=== PATIENT | male | born 1970 | race Caucasian/White ===

== ENCOUNTER → 2016-12-31 | Outpatient (CLI) | payer MEDICAID ==
--- NOTE | 2016-12-31 16:23 | CR ---
EXAMINATION: Two-view chest (PA and Lateral views). HISTORY: Tobacco use. FINDINGS: The trachea is midline. The cardiomediastinal silhouette is within normal limits. No pulmonary infil trates, effusions or pneumothorax. Minimal hyperinflation. Osseous structures appear unremarkable. IMPRESSION: No acute cardiopulmonary process.
[2016-12-31 16:27] LABS: CHLORIDE,CL 108 mmol/L (98-110); SODIUM,NA 142 mmol/L (136-146)
--- NOTE | 2017-01-03 09:21 | CR ---
EXAMINATION: Right elbow HISTORY: Lateral epicondylitis COMPARISON: None TECHNIQUE: 2 views FINDINGS/IMPRESSION: There is no acute osseous abnormality, dislocation, or fracture identified. Bon e mineralization and joint spaces appear grossly preserved.
== END ==
LOC: MERGE 15:35 → MW.CHRC 15:35
PROVIDERS: ATTEND Family Medicine
DX: Z00.00 Encounter for general adult medical examination without abnormal findings (principal); M77.11 Lateral epicondylitis, right elbow; Z72.0 Tobacco use
CPT/HCPCS: 36415; 71020; 71020-26; 73070-26-RT; 73070-RT; 80053; 80061; 84439; 84443; 85025

== ENCOUNTER 2023-09-13 11:05 | Emergency (ER) | payer MEDICAID ==
[2023-09-13] MEDS ORDERED: Acetaminophen 500 MG Tab PO STA (11:16)
[2023-09-13] MEDS ORDERED: Ibuprofen 800 MG Tab PO STA (11:16)
[2023-09-13] MEDS ORDERED: oxyCODONE 5 MG Tab PO STA (11:16)
== END 2023-09-13 13:27 | disposition home or self-care (01) ==
LOC: MW.ED 11:05
DX: S52.501A Unspecified fracture of the lower end of right radius, initial encounter for closed fracture (principal); W11.XXXA Fall on and from ladder, initial encounter
CPT/HCPCS: 29125; 73060; 73090; 73110; 99283; A9270

== ENCOUNTER 2024-05-02 07:46 | Day surgery (SDC) | payer OTHER, MEDICAID ==
[~2024-05-02 07:46] MED LIST: Albuterol 0.083% 2.5 MG/3 ML Neb Soln NEB PRN; Bupivacaine 0.5% 30 ML SDV ONE; Lidocaine 2% 5 ML SDV ONE; Metoclopramide 10 MG/2 ML SDV IVPUSH PRN; Midazolam 1 MG/ML 2 ML SDV ONE; Morphine 2 MG/ML SYRINGE IVPUSH PRN; Naloxone 0.4 MG/ML SDV IVPUSH PRN; Ondansetron 4 MG/2 ML SDV IVPUSH PRN; ROPIVACAINE HCL ONE; dexmedeTOMIDine HCl 200 MCG/2 ML SDV ONE; droPERidol 5 MG/2 ML SDV IVPUSH PRN; fentaNYL 100 MCG/2 ML SDV ONE
[2024-05-02] MEDS ORDERED: ceFAZolin 2 GM in Sodium Chloride 0.9% 50 ML IV ONE (08:00)
[2024-05-02] MEDS: Lactated Ringers 1,000 ML IV SCH (08:17)
[2024-05-02] MEDS ORDERED: Ondansetron 4 MG/2 ML SDV ONE ×2 (10:26→14:18)
[2024-05-02] MEDS ORDERED: Lidocaine 2% 5 ML SDV ONE (10:26)
[2024-05-02] MEDS ORDERED: Sugammadex Sodium 200 MG/2 ML VIAL IV ONE (10:26)
[2024-05-02] MEDS ORDERED: Ketorolac 30 MG/ML SDV ONE (10:26)
[2024-05-02] MEDS ORDERED: Rocuronium Bromide 50 MG/5 ML Syringe ONE (10:26)
[2024-05-02] MEDS ORDERED: Dexamethasone 4 MG/ML 5 ML MDV ONE (10:26)
[2024-05-02] MEDS ORDERED: Propofol 200 MG/20 ML SDV ONE ×2 (10:26→14:18)
[2024-05-02] MEDS ORDERED: Ketamine HCL/NACL, ISO-OSM 50 MG/5 ML Syringe ONE (10:27)
[2024-05-02] MEDS ORDERED: fentaNYL 250 MCG/5 ML SDV ONE (10:27)
[2024-05-02] MEDS ORDERED: propofoL 50 ML ONE ×2 (10:34→12:46)
[2024-05-02] MEDS ORDERED: ceFAZolin 2 GM Vial ONE (10:36)
[2024-05-02] MEDS ORDERED: ePHEDrine 50 MG/ML SDV ONE (11:12)
[2024-05-02] MEDS ORDERED: ceFAZolin 1 GM Vial ONE ×3 (12:51→14:30)
[2024-05-02] MEDS ORDERED: Water For Injection, Sterile 20 ML ONE (13:19)
[2024-05-02] MEDS ORDERED: fentaNYL 100 MCG/2 ML SDV ONE (13:43)
[2024-05-02] MEDS ORDERED: Esmolol 100 MG/10 ML SDV ONE (14:17)
[2024-05-02] MEDS: HYDROmorphone 1 MG/ML Syringe IVPUSH PRN (15:31)
[2024-05-02] MEDS: fentaNYL 50 MCG/ML SDV IVPUSH PRN (15:35)
[2024-05-02] MEDS ORDERED: Gabapentin 300 MG Cap ONE (15:53)
== END 2024-05-02 17:50 | disposition home or self-care (01) ==
LOC: MW.SDS 07:46 → EDSTATUS 08:00 → MW.MS 16:30 → MW.SDS 17:50
PROVIDERS: ATTEND Orthopaedic Surgery
DX: S82.142A Displaced bicondylar fracture of left tibia, initial encounter for closed fracture (principal); S83.252A Bucket-handle tear of lateral meniscus, current injury, left knee, initial encounter; F41.9 Anxiety disorder, unspecified; J44.9 Chronic obstructive pulmonary disease, unspecified; F32.A Depression, unspecified; G47.00 Insomnia, unspecified; F17.210 Nicotine dependence, cigarettes, uncomplicated; Z79.899 Other long term (current) drug therapy; V29.408A Other motorcycle driver injured in collision with unspecified motor vehicles in traffic accident, initial encounter
CPT/HCPCS: 27536; 64445; 64448; A9270; J0131; J0665; J0690; J1100; J1170; J1885; J2250; J2405; J2704; J2795; J3010; J3490; J7120

== ENCOUNTER 2024-05-04 01:04 | Emergency (ER) | payer MEDICAID ==
[2024-05-04 02:18] LABS: BASOPHILS ABSOLUTE AUTO 0.07 K/uL (0.00-0.20); BASOPHILS PERCENT AUTO 0.6 % (0.0-1.0); EOSINOPHILS ABSOLUTE AUTO 0.19 K/uL (0.00-0.45); EOSINOPHILS PERCENT AUTO 1.7 % (0.0-6.0); HEMATOCRIT 27.2 % (42.0-52.0); IMMATURE GRAN ABSOLUTE AUTO 0.06 K/uL (0.00-0.05); IMMATURE GRAN PERCENT AUTO 0.5 % (0.0-0.4); LYMPHOCYTES ABSOLUTE AUTO 2.33 K/uL (1.00-4.80); LYMPHOCYTES PERCENT AUTO 20.6 % (24.0-44.0); MEAN CORPUSCULAR HEMOGLOBIN 28.8 pg (28.0-32.0); MEAN CORPUSCULAR HGB CONC 33.1 g/dL (32.0-36.0); MEAN CORPUSCULAR VOLUME 87.2 fL (83.0-99.0); MEAN PLATELET VOLUME 8.5 fL (9.4-12.4); MONOCYTES ABSOLUTE AUTO 0.94 K/uL (0.00-0.80); MONOCYTES PERCENT AUTO 8.3 % (0.0-8.0); NEUTROPHILS ABSOLUTE AUTO 7.71 K/uL (1.80-7.70); NEUTROPHILS PERCENT AUTO 68.3 % (41.0-71.0); PLATELET COUNT,PLT 527 K/uL (150-400); RED BLOOD CELL COUNT 3.12 M/uL (4.52-5.90)
[2024-05-04] MEDS: HYDROmorphone 1 MG/ML Syringe IVPUSH ONE ×3 (02:18→07:05)
[2024-05-04] MEDS: Sodium Chloride 0.9% 10 ML Syringe FLUSH PRN (02:25)
[2024-05-04] MEDS: Sodium Chloride 0.9% 2.5 ML Syringe FLUSH PRN (02:25)
[2024-05-04 02:39] LABS: A/G RATIO 0.9 (0.9-1.6); BILIRUBIN TOTAL 0.4 mg/dL (0.2-1.0); CARBON DIOXIDE,CO2 26.5 mmol/L (21.0-32.0); CREATININE 0.9 mg/dL (0.8-1.3); EST CRCL DRUG DOSING (CG) 84.28 mL/min; POTASSIUM,K 3.4 mmol/L (3.5-5.1); PROTEIN TOTAL,TP 6.4 g/dL (6.4-8.2)
[2024-05-04] MEDS: Ondansetron 4 MG/2 ML SDV IVPUSH ONE (04:35)
[2024-05-04] MEDS ORDERED: Bupivacaine 0.5%/EPINEPHrine 1:200,000 30 ML SDV ONE (07:52)
[2024-05-04] MEDS ORDERED: Ketamine HCL/NACL, ISO-OSM 50 MG/5 ML Syringe ONE (07:54)
[2024-05-04] MEDS ORDERED: dexmedeTOMIDine HCl 200 MCG/2 ML SDV ONE (07:54)
[2024-05-04] MEDS ORDERED: Midazolam 1 MG/ML 2 ML SDV ONE (07:54)
[2024-05-04] MEDS ORDERED: Water For Injection, Sterile 20 ML ONE (07:55)
[2024-05-04] MEDS ORDERED: Lidocaine 2% 5 ML SDV ONE (07:59)
[2024-05-04] MEDS: Sodium Chloride 0.9% 1,000 ML IV ONE (08:11)
== END 2024-05-04 11:28 | disposition home or self-care (01) ==
LOC: MW.ED 01:04
DX: G89.18 Other acute postprocedural pain (principal); M79.662 Pain in left lower leg; Z90.49 Acquired absence of other specified parts of digestive tract; Z79.899 Other long term (current) drug therapy
CPT/HCPCS: 36415; 64445; 64447; 80053; 85025; 96361; 96374; 96375; 96376; 99284; J1170; J2250; J2405; J3490; J7030

== ENCOUNTER 2024-07-13 10:04 | Day surgery (SDC) | payer MEDICAID ==
[~2024-07-13 10:04] MED LIST changes: -Albuterol 0.083% 2.5 MG/3 ML Neb Soln NEB PRN; -Bupivacaine 0.5% 30 ML SDV ONE; -Lidocaine 2% 5 ML SDV ONE; -Metoclopramide 10 MG/2 ML SDV IVPUSH PRN; -Midazolam 1 MG/ML 2 ML SDV ONE; -Morphine 2 MG/ML SYRINGE IVPUSH PRN; -Naloxone 0.4 MG/ML SDV IVPUSH PRN; -Ondansetron 4 MG/2 ML SDV IVPUSH PRN; -ROPIVACAINE HCL ONE; +ceFAZolin 2 GM in Sodium Chloride 0.9% 50 ML IV ONE; -dexmedeTOMIDine HCl 200 MCG/2 ML SDV ONE; -droPERidol 5 MG/2 ML SDV IVPUSH PRN; -fentaNYL 100 MCG/2 ML SDV ONE
[2024-07-13] MEDS ORDERED: Lidocaine 2% 5 ML SDV INJECT ONE (10:05)
[2024-07-13] MEDS ORDERED: Midazolam 1 MG/ML 2 ML SDV ONE (10:29)
[2024-07-13] MEDS ORDERED: fentaNYL 100 MCG/2 ML SDV ONE ×2 (10:29→12:46)
[2024-07-13] MEDS ORDERED: Propofol 200 MG/20 ML SDV ONE (10:30)
[2024-07-13] MEDS ORDERED: Succinylcholine/Sod PF 100 MG/5 ML SYRINGE IV ONE (10:39)
[2024-07-13] MEDS ORDERED: Ondansetron 4 MG/2 ML SDV ONE (10:40)
[2024-07-13] MEDS ORDERED: Dexamethasone 4 MG/ML 5 ML MDV ONE (10:40)
[2024-07-13] MEDS: Lactated Ringers 1,000 ML IV SCH (10:44)
[2024-07-13] MEDS: HYDROmorphone 1 MG/ML Syringe IVPUSH ONE (13:30)
[2024-07-13] MEDS ORDERED: Naloxone 0.4 MG/ML SDV IVPUSH PRN ×2 (13:31→13:36)
[2024-07-13] MEDS ORDERED: Ondansetron 4 MG/2 ML SDV IVPUSH PRN (13:36)
[2024-07-13] MEDS ORDERED: fentaNYL 50 MCG/ML SDV IVPUSH PRN (13:36)
[2024-07-13] MEDS ORDERED: Morphine 2 MG/ML SYRINGE IVPUSH PRN (13:36)
[2024-07-13] MEDS ORDERED: Phenylephrine HCl In 0.9% NaCl 1 MG/10 ML Syringe IVPUSH PRN (13:36)
[2024-07-13] MEDS ORDERED: Metoclopramide 10 MG/2 ML SDV IVPUSH PRN (13:36)
[2024-07-13] MEDS ORDERED: Albuterol 0.083% 2.5 MG/3 ML Neb Soln NEB PRN (13:36)
[2024-07-13] MEDS ORDERED: HYDROmorphone 1 MG/ML Syringe IVPUSH PRN (13:36)
== END 2024-07-13 14:50 | disposition home or self-care (01) ==
LOC: MW.SDS 10:04
PROVIDERS: ATTEND Orthopaedic Surgery
DX: T81.89XA Other complications of procedures, not elsewhere classified, initial encounter (principal); J44.9 Chronic obstructive pulmonary disease, unspecified; F31.9 Bipolar disorder, unspecified; F17.290 Nicotine dependence, other tobacco product, uncomplicated
CPT/HCPCS: 11042; J0330; J1100; J1170; J2250; J2704; J3010; J7120; J0690; J2405; J3490

== ENCOUNTER 2024-09-03 10:27 | Day surgery (SDC) | payer MEDICAID ==
[~2024-09-03 10:27] MED LIST changes: +Albuterol 0.083% 2.5 MG/3 ML Neb Soln NEB PRN; +HYDROmorphone 1 MG/ML Syringe IVPUSH PRN; +Metoclopramide 10 MG/2 ML SDV IVPUSH PRN; +Morphine 2 MG/ML SYRINGE IVPUSH PRN; +Naloxone 0.4 MG/ML SDV IVPUSH PRN; +Ondansetron 4 MG/2 ML SDV IVPUSH PRN; +Phenylephrine HCl In 0.9% NaCl 1 MG/10 ML Syringe IVPUSH PRN; -ceFAZolin 2 GM in Sodium Chloride 0.9% 50 ML IV ONE; +fentaNYL 50 MCG/ML SDV IVPUSH PRN
[2024-09-03] MEDS: Lactated Ringers 1,000 ML IV SCH (11:17)
[2024-09-03] MEDS ORDERED: Lidocaine 2% 5 ML SDV ONE (11:43)
[2024-09-03] MEDS ORDERED: Midazolam 1 MG/ML 2 ML SDV ONE (11:43)
[2024-09-03] MEDS ORDERED: fentaNYL 100 MCG/2 ML SDV ONE (11:43)
[2024-09-03] MEDS ORDERED: Propofol 200 MG/20 ML SDV ONE (11:44)
[2024-09-03] MEDS ORDERED: ceFAZolin 1 GM Vial ONE (12:00)
[2024-09-03] MEDS ORDERED: Ondansetron 4 MG/2 ML SDV ONE (12:14)
[2024-09-03] MEDS ORDERED: Ketorolac 30 MG/ML SDV ONE (12:15)
== END 2024-09-03 13:45 | disposition home or self-care (01) ==
LOC: MW.SDS 10:27
PROVIDERS: ATTEND Orthopaedic Surgery
DX: S81.002A Unspecified open wound, left knee, initial encounter (principal); F41.9 Anxiety disorder, unspecified; F31.9 Bipolar disorder, unspecified; J44.9 Chronic obstructive pulmonary disease, unspecified; Z79.899 Other long term (current) drug therapy
CPT/HCPCS: 10180; J0690; J1885; J2250; J2405; J2704; J3010; J7120; J3490

== ENCOUNTER 2024-12-20 06:44 | Day surgery (SDC) | payer MEDICAID ==
[2024-12-20] MEDS: Lactated Ringers 1,000 ML IV SCH (07:15)
[2024-12-20] MEDS ORDERED: fentaNYL 100 MCG/2 ML SDV ONE (07:21)
[2024-12-20] MEDS ORDERED: Propofol 200 MG/20 ML SDV ONE ×2 (07:21→09:52)
[2024-12-20] MEDS ORDERED: Midazolam 1 MG/ML 2 ML SDV ONE ×2 (07:21→13:12)
[2024-12-20] MEDS ORDERED: Ketamine HCL/NACL, ISO-OSM 50 MG/5 ML Syringe ONE (07:21)
[2024-12-20] MEDS ORDERED: Lidocaine 1% 5 ML VIAL ONE ×2 (07:22→13:02)
[2024-12-20] MEDS ORDERED: Ondansetron 4 MG/2 ML SDV ONE (07:22)
[2024-12-20] MEDS ORDERED: Lidocaine 2% 5 ML SDV ONE (07:22)
[2024-12-20] MEDS ORDERED: Dexamethasone 4 MG/ML 5 ML MDV ONE (07:22)
[2024-12-20] MEDS ORDERED: Albuterol 0.083% 2.5 MG/3 ML Neb Soln NEB PRN (07:56)
[2024-12-20] MEDS ORDERED: Metoclopramide 10 MG/2 ML SDV IVPUSH PRN (07:56)
[2024-12-20] MEDS ORDERED: Morphine 2 MG/ML SYRINGE IVPUSH PRN (07:56)
[2024-12-20] MEDS ORDERED: fentaNYL 50 MCG/ML SDV IVPUSH PRN (07:56)
[2024-12-20] MEDS ORDERED: Phenylephrine HCl In 0.9% NaCl 1 MG/10 ML Syringe IVPUSH PRN (07:56)
[2024-12-20] MEDS ORDERED: Naloxone 0.4 MG/ML SDV IVPUSH PRN (07:56)
[2024-12-20] MEDS ORDERED: Ondansetron 4 MG/2 ML SDV IVPUSH PRN (07:56)
[2024-12-20] MEDS ORDERED: ceFAZolin 2 GM Vial ONE (07:57)
[2024-12-20] MEDS ORDERED: ceFAZolin 2 GM in Sodium Chloride 0.9% 50 ML IV ONE (08:00)
[2024-12-20] MEDS ORDERED: ePHEDrine 50 MG/ML SDV ONE (08:52)
[2024-12-20] MEDS ORDERED: HYDROmorphone 1 MG/ML Syringe ONE (09:10)
[2024-12-20] MEDS ORDERED: Sugammadex Sodium 200 MG/2 ML VIAL IV ONE (11:26)
[2024-12-20] MEDS: HYDROmorphone 1 MG/ML Syringe IVPUSH PRN (12:38)
[2024-12-20] MEDS ORDERED: Ropivacaine 0.5% 5 MG/ML 30 ML SDV ONE (13:05)
[2024-12-20] MEDS: oxyCODONE 5 MG Tab PO ONE (14:45)
== END 2024-12-20 15:39 | disposition home or self-care (01) ==
LOC: MW.SDS 06:44 → EEVIPCON 06:44 → MW.SDS 15:39
PROVIDERS: ATTEND Orthopaedic Surgery
DX: S82.142P Displaced bicondylar fracture of left tibia, subsequent encounter for closed fracture with malunion (principal); S82.402K Unspecified fracture of shaft of left fibula, subsequent encounter for closed fracture with nonunion; M21.062 Valgus deformity, not elsewhere classified, left knee; F41.9 Anxiety disorder, unspecified; J44.9 Chronic obstructive pulmonary disease, unspecified; F31.9 Bipolar disorder, unspecified; F17.210 Nicotine dependence, cigarettes, uncomplicated; Z79.899 Other long term (current) drug therapy; X58.XXXA Exposure to other specified factors, initial encounter
CPT/HCPCS: 20680; 27457; 64708; 87070; 87075; 87077; 87186; 87205; A9270; C1713; C1776; J0131; J0690; J1100; J1171; J2003; J2250; J2704; J2795; J3010; J7120; 01392; 64447; J2405; J3490

== ENCOUNTER 2025-03-08 08:48 | Emergency (ER) | payer MEDICAID ==
[2025-03-08] MEDS ORDERED: Sodium Chloride 0.9% 2.5 ML Syringe FLUSH PRN (09:28)
[2025-03-08] MEDS: Sodium Chloride 0.9% 10 ML Syringe FLUSH PRN (09:46)
[2025-03-08] MEDS: Morphine 2 MG/ML SYRINGE IVPUSH ONE (09:46)
[2025-03-08] MEDS: Ketorolac 30 MG/ML SDV IVPUSH ONE (09:46)
[2025-03-08 10:03] LABS: HEMATOCRIT 42.4 % (42.0-52.0); HEMOGLOBIN 13.3 g/dL (14.0-18.0); MEAN CORPUSCULAR HEMOGLOBIN 24.9 pg (28.0-32.0); MEAN CORPUSCULAR HGB CONC 31.4 g/dL (32.0-36.0); MEAN CORPUSCULAR VOLUME 79.3 fL (83.0-99.0); PLATELET COUNT,PLT 472 K/uL (150-400); RED BLOOD CELL COUNT 5.35 M/uL (4.52-5.90); WHITE BLOOD CELL COUNT,WBC 9.96 K/uL (3.9-11.3)
[2025-03-08 10:20] LABS: C-REACTIVE PROTEIN 20.93 mg/dL (<0.3); CALCIUM 9.5 mg/dL (8.5-10.1); CARBON DIOXIDE,CO2 25.3 mmol/L (21.0-32.0); CREATININE 0.9 mg/dL (0.8-1.3); EST CRCL DRUG DOSING (CG) 83.3 mL/min; POTASSIUM,K 4.4 mmol/L (3.5-5.1)
[2025-03-08 10:37] LABS: LYMPHOCYTES ABSOLUTE MAN 1.99 K/uL (1.00-4.80); LYMPHOCYTES PERCENT MAN 20 % (24-44); MONOCYTES ABSOLUTE MAN 1.49 K/uL (0.00-0.80); MONOCYTES PERCENT MAN 15 % (0-8); SEG NEUTROPHILS ABSOLUTE MAN 6.47 K/uL (1.80-7.70); SEG NEUTROPHILS PERCENT MAN 65 % (41-71)
[2025-03-08] MEDS: Acetaminophen/HYDROcodone 325-5 MG Tab PO ONE (11:22)
== END 2025-03-08 12:08 | disposition home or self-care (01) ==
LOC: MW.ED 08:48
DX: M25.562 Pain in left knee (principal); J44.9 Chronic obstructive pulmonary disease, unspecified; Z90.49 Acquired absence of other specified parts of digestive tract
CPT/HCPCS: 36415; 73562; 73590; 80048; 85025; 85652; 86140; 96374; 96375; 99283; A9270; J1885; J2270

== ENCOUNTER 2025-05-15 10:47 | Inpatient (IN) | payer MEDICAID ==
[~2025-05-15 10:47] MED LIST changes: -HYDROmorphone 1 MG/ML Syringe IVPUSH PRN; -Metoclopramide 10 MG/2 ML SDV IVPUSH PRN; -Morphine 2 MG/ML SYRINGE IVPUSH PRN; -Phenylephrine HCl In 0.9% NaCl 1 MG/10 ML Syringe IVPUSH PRN
[2025-05-15] MEDS: Lactated Ringers 1,000 ML IV SCH (11:50)
[2025-05-15] MEDS ORDERED: fentaNYL 250 MCG/5 ML SDV ONE ×2 (11:54→13:27)
[2025-05-15] MEDS ORDERED: Propofol 200 MG/20 ML SDV ONE (11:54)
[2025-05-15 12:07] LABS: BASOPHILS ABSOLUTE AUTO 0.08 K/uL (0.00-0.20); BASOPHILS PERCENT AUTO 1.0 % (0.0-1.0); EOSINOPHILS ABSOLUTE AUTO 0.31 K/uL (0.00-0.45); EOSINOPHILS PERCENT AUTO 3.7 % (0.0-6.0); IMMATURE GRAN ABSOLUTE AUTO 0.02 K/uL (0.00-0.05); IMMATURE GRAN PERCENT AUTO 0.2 % (0.0-0.4); LYMPHOCYTES ABSOLUTE AUTO 1.68 K/uL (1.00-4.80); LYMPHOCYTES PERCENT AUTO 20.0 % (24.0-44.0); MEAN PLATELET VOLUME 9.0 fL (9.4-12.4); MONOCYTES ABSOLUTE AUTO 0.88 K/uL (0.00-0.80); MONOCYTES PERCENT AUTO 10.5 % (0.0-8.0); NEUTROPHILS ABSOLUTE AUTO 5.41 K/uL (1.80-7.70); NEUTROPHILS PERCENT AUTO 64.6 % (41.0-71.0); NRBC ABSOLUTE 0.00 K/uL (0.00-0.02); NRBC PERCENT 0.0 /100WBC (0.0-0.2); PLATELET COUNT,PLT 283 K/uL (150-400); RED BLOOD CELL COUNT 4.49 M/uL (4.52-5.90); WHITE BLOOD CELL COUNT,WBC 8.38 K/uL (3.9-11.3)
[2025-05-15 12:31] LABS: A/G RATIO 1.1 (0.9-1.6); ALANINE AMINOTRANSFERASE,ALT 33.0 IU/L (14-63); ASPARTATE AMNIOTRANSFERASE,AST 24.0 IU/L (15-37); BILIRUBIN TOTAL 0.7 mg/dL (0.2-1.0); BLOOD UREA NITROGEN,BUN 19.0 mg/dL (7.0-18.0); CARBON DIOXIDE,CO2 25.7 mmol/L (21.0-32.0); CHLORIDE,CL 102.0 mmol/L (98-107); CREATININE 0.9 mg/dL (0.8-1.3); EST CRCL DRUG DOSING (CG) 83.3 mL/min; GLUCOSE RANDOM 92.0 mg/dL (74-106); POTASSIUM,K 3.7 mmol/L (3.5-5.1); PROTEIN TOTAL,TP 6.8 g/dL (6.4-8.2); SODIUM,NA 138.0 mmol/L (136-148)
[2025-05-15 12:38] LABS: ESTIMATED GFR 101.0 mL/min (>60)
[2025-05-15] MEDS ORDERED: Lidocaine 2% 11 ML Jelly Filled Syringe ONE (12:38)
[2025-05-15] MEDS ORDERED: Succinylcholine/Sod PF 100 MG/5 ML SYRINGE IV ONE (12:40)
[2025-05-15] MEDS ORDERED: Ketamine HCL/NACL, ISO-OSM 50 MG/5 ML Syringe ONE (13:29)
[2025-05-15] MEDS ORDERED: Dexamethasone 4 MG/ML 5 ML MDV ONE (14:38)
[2025-05-15] MEDS ORDERED: Ondansetron 4 MG/2 ML SDV ONE (14:38)
[2025-05-15] MEDS ORDERED: Ondansetron 4 MG/2 ML SDV IVPUSH PRN (14:55)
[2025-05-15] MEDS: Ketorolac 30 MG/ML SDV IVPUSH SCH (15:52)
[2025-05-16 06:01] LABS: BASOPHILS ABSOLUTE AUTO 0.02 K/uL (0.00-0.20); BASOPHILS PERCENT AUTO 0.2 % (0.0-1.0); EOSINOPHILS ABSOLUTE AUTO 0.00 K/uL (0.00-0.45); EOSINOPHILS PERCENT AUTO 0.0 % (0.0-6.0); IMMATURE GRAN ABSOLUTE AUTO 0.03 K/uL (0.00-0.05); IMMATURE GRAN PERCENT AUTO 0.3 % (0.0-0.4); LYMPHOCYTES ABSOLUTE AUTO 1.26 K/uL (1.00-4.80); LYMPHOCYTES PERCENT AUTO 14.0 % (24.0-44.0); MEAN PLATELET VOLUME 9.1 fL (9.4-12.4); MONOCYTES ABSOLUTE AUTO 0.98 K/uL (0.00-0.80); MONOCYTES PERCENT AUTO 10.9 % (0.0-8.0); NEUTROPHILS ABSOLUTE AUTO 6.72 K/uL (1.80-7.70); NEUTROPHILS PERCENT AUTO 74.6 % (41.0-71.0); NRBC ABSOLUTE 0.00 K/uL (0.00-0.02); NRBC PERCENT 0.0 /100WBC (0.0-0.2); PLATELET COUNT,PLT 306 K/uL (150-400); RED BLOOD CELL COUNT 4.14 M/uL (4.52-5.90); WHITE BLOOD CELL COUNT,WBC 9.01 K/uL (3.9-11.3)
[2025-05-16 06:25] LABS: BLOOD UREA NITROGEN,BUN 18.0 mg/dL (7.0-18.0); CARBON DIOXIDE,CO2 27.1 mmol/L (21.0-32.0); CHLORIDE,CL 102.0 mmol/L (98-107); CREATININE 0.9 mg/dL (0.8-1.3); EST CRCL DRUG DOSING (CG) 83.29 mL/min; GLUCOSE RANDOM 111.0 mg/dL (74-106); POTASSIUM,K 4.4 mmol/L (3.5-5.1); SODIUM,NA 136.0 mmol/L (136-148)
[2025-05-16 06:31] LABS: ESTIMATED GFR 101.0 mL/min (>60)
[2025-05-16] MEDS ORDERED: Succinylcholine/Sod PF 100 MG/5 ML SYRINGE IV ONE (07:46)
== END 2025-05-16 17:25 | disposition home or self-care (01) | DRG 496 ==
LOC: MW.SDS 10:47 → MW.MS 15:46 → MW.SDS 16:47 → MW.MS 16:48
PROVIDERS: ADMIT Orthopaedic Surgery; ATTEND Orthopaedic Surgery
PROC: 0QPH04Z Removal of Internal Fixation Device from Left Tibia, Open Approach (ICD-10-PCS; principal; 2025-05-15 13:15)
DX: T84.54XA Infection and inflammatory reaction due to internal left knee prosthesis, initial encounter (principal); M00.062 Staphylococcal arthritis, left knee; M86.662 Other chronic osteomyelitis, left tibia and fibula; T84.7XXA Infection and inflammatory reaction due to other internal orthopedic prosthetic devices, implants and grafts, initial encounter; J44.9 Chronic obstructive pulmonary disease, unspecified; Y83.8 Other surgical procedures as the cause of abnormal reaction of the patient, or of later complication, without mention of misadventure at the time of the procedure; Y92.89 Other specified places as the place of occurrence of the external cause; F41.9 Anxiety disorder, unspecified; F17.200 Nicotine dependence, unspecified, uncomplicated; F31.9 Bipolar disorder, unspecified; F25.9 Schizoaffective disorder, unspecified; F43.12 Post-traumatic stress disorder, chronic; Z90.49 Acquired absence of other specified parts of digestive tract; Z98.890 Other specified postprocedural states
CPT/HCPCS: 01392; 36415; 76000; 76000-26; 80048; 80053; 80202; 85025; 85652; 86140; 87070; 87075; 87205; 97162-GP; 97530-GP; 99222; 99232; A9270-GY; J0665; J1100; J1885; J2405; J2704; J3010; J3370; J3371; J3373; J3490; J7050; J7120

== ENCOUNTER 2025-06-07 15:05 | Emergency (ER) | payer MEDICAID | END 2025-06-07 16:11 | disposition left against medical advice (07) | LOC: MW.ED 15:05 | DX: N19 Unspecified kidney failure (principal); J44.9 Chronic obstructive pulmonary disease, unspecified; Z75.3 Unavailability and inaccessibility of health-care facilities; Z79.899 Other long term (current) drug therapy | CPT/HCPCS: 99282; 99283 ==

== ENCOUNTER 2025-06-09 08:39 | Observation (INO) | payer MEDICAID ==
[2025-06-09 09:48] LABS: BASOPHILS ABSOLUTE AUTO 0.09 K/uL (0.00-0.20); BASOPHILS PERCENT AUTO 1.2 % (0.0-1.0); EOSINOPHILS ABSOLUTE AUTO 0.26 K/uL (0.00-0.45); EOSINOPHILS PERCENT AUTO 3.4 % (0.0-6.0); IMMATURE GRAN ABSOLUTE AUTO 0.02 K/uL (0.00-0.05); IMMATURE GRAN PERCENT AUTO 0.3 % (0.0-0.4); LYMPHOCYTES ABSOLUTE AUTO 1.16 K/uL (1.00-4.80); LYMPHOCYTES PERCENT AUTO 15.0 % (24.0-44.0); MEAN PLATELET VOLUME 9.0 fL (9.4-12.4); MONOCYTES ABSOLUTE AUTO 0.81 K/uL (0.00-0.80); MONOCYTES PERCENT AUTO 10.5 % (0.0-8.0); NEUTROPHILS ABSOLUTE AUTO 5.38 K/uL (1.80-7.70); NEUTROPHILS PERCENT AUTO 69.6 % (41.0-71.0); NRBC ABSOLUTE 0.00 K/uL (0.00-0.02); NRBC PERCENT 0.0 /100WBC (0.0-0.2); PLATELET COUNT,PLT 380 K/uL (150-400); RED BLOOD CELL COUNT 4.78 M/uL (4.52-5.90); WHITE BLOOD CELL COUNT,WBC 7.72 K/uL (3.9-11.3)
[2025-06-09 10:12] LABS: A/G RATIO 0.9 (0.9-1.6); ALANINE AMINOTRANSFERASE,ALT 42 IU/L (14-63); ASPARTATE AMNIOTRANSFERASE,AST 22 IU/L (15-37); BILIRUBIN TOTAL 0.4 mg/dL (0.2-1.0); BLOOD UREA NITROGEN,BUN 24 mg/dL (7.0-18.0); CARBON DIOXIDE,CO2 26.7 mmol/L (21.0-32.0); CHLORIDE,CL 102 mmol/L (98-107); CREATINE KINASE,CK 52 U/L (26-308); CREATININE 2.1 mg/dL (0.8-1.3); GLUCOSE RANDOM 99 mg/dL (74-106); POTASSIUM,K 4.1 mmol/L (3.5-5.1); PROTEIN TOTAL,TP 8.1 g/dL (6.4-8.2); SODIUM,NA 139 mmol/L (136-148); VANCOMYCIN RANDOM 26.6 ug/mL
[2025-06-09 10:13] LABS: ESTIMATED GFR 36 mL/min (>60)
[2025-06-09 10:16] LABS: LACTIC ACID 0.6 mmol/L (0.4-2.0)
[2025-06-09] MEDS ORDERED: Sodium Chloride 0.9% 10 ML Syringe FLUSH PRN (11:52)
[2025-06-09] MEDS ORDERED: Sodium Chloride 0.9% 2.5 ML Syringe FLUSH PRN (11:52)
[2025-06-09] MEDS ORDERED: Ondansetron 4 MG/2 ML SDV IVPUSH PRN (12:20)
== END 2025-06-09 13:30 ==
LOC: MW.ED 08:39 → MW.MS 11:24
PROVIDERS: ADMIT Family Medicine; ATTEND Family Medicine
DX: N17.9 Acute kidney failure, unspecified (principal); F17.210 Nicotine dependence, cigarettes, uncomplicated; Z79.2 Long term (current) use of antibiotics; Z86.14 Personal history of Methicillin resistant Staphylococcus aureus infection; Z79.899 Other long term (current) drug therapy
CPT/HCPCS: 36415; 71046; 80053; 80202; 82550; 83605; 83735; 85025; J7030; 96360; 99283; 99284-25